=== PATIENT | female | born 1970 | race African-American/Black ===

== ENCOUNTER 2016-08-28 10:46 | Emergency (ER) | payer SELFPAY ==
[2016-08-28] MEDS ORDERED: Ketorolac Tromethamine 60 MG/2 ML VIAL ONE (11:25)
[2016-08-28] MEDS ORDERED: Cyclobenzaprine 10 MG TAB ONE (11:25)
--- NOTE | 2016-08-28 12:27 | RAD ---
FRONTAL VIEW CHEST THREE VIEW RIGHT RIB SERIES: CLINICAL HISTORY: Right chest and back pain intermittent for 4 months. FINDINGS: There is no consolidation, effusion, or pneumothorax. No free air beneath the hemidiaphragms. Card iac silhouette is within normal limits of size. No displaced right rib fracture is seen. Scattered degenerative change of the osseous structures is present. There is a left convexity curvature of t he mid to low thoracic spine. IMPRESSION: No acute abnormality visualized. POS: RODNEY
== END 2016-08-28 12:48 | disposition home or self-care (01) ==
LOC: NAV ERS 10:46
DX: S23.3XXA Sprain of ligaments of thoracic spine, initial encounter (principal); I10 Essential (primary) hypertension; F17.210 Nicotine dependence, cigarettes, uncomplicated; Z79.899 Other long term (current) drug therapy; Z79.82 Long term (current) use of aspirin; X58.XXXA Exposure to other specified factors, initial encounter
CPT/HCPCS: 96372; J1885

== ENCOUNTER 2017-07-03 07:58 | Emergency (ER) | payer SELFPAY ==
[2017-07-03] MEDS ORDERED: Ibuprofen 800 MG TAB ONE (08:17)
[2017-07-03] MEDS ORDERED: Bicillin LA 1.2 MILLION UNITS/2 ML SYRINGE ONE ×2 (08:43→08:47)
== END 2017-07-03 09:09 | disposition home or self-care (01) ==
LOC: NAV ERS 07:58
DX: J02.0 Streptococcal pharyngitis (principal); I10 Essential (primary) hypertension; F17.210 Nicotine dependence, cigarettes, uncomplicated; Z79.899 Other long term (current) drug therapy; Z79.82 Long term (current) use of aspirin
CPT/HCPCS: 87430; 96372; J0561

== ENCOUNTER 2017-07-04 17:42 | Emergency (ER) | payer SELFPAY ==
[2017-07-04] MEDS ORDERED: cloNIDine 0.1 MG TAB ONE (18:20)
[2017-07-04] MEDS ORDERED: methylPREDNISolone Sod Succ/PF 125 MG/2 ML VIAL ONE (18:29)
== END 2017-07-04 18:39 | disposition home or self-care (01) ==
LOC: NAV ERS 17:42
DX: J02.9 Acute pharyngitis, unspecified (principal); I10 Essential (primary) hypertension; Z87.891 Personal history of nicotine dependence; Z79.82 Long term (current) use of aspirin; Z79.899 Other long term (current) drug therapy
CPT/HCPCS: 96372; J2930

== ENCOUNTER 2018-03-04 23:44 | Emergency (ER) | payer SELFPAY ==
[2018-03-05] MEDS ORDERED: Ketorolac Tromethamine 30 MG/ML VIAL ONE (00:04)
--- NOTE | 2018-03-05 08:45 | RAD ---
RADIOGRAPH RIGHT KNEE FOUR VIEWS: History: 47-year-old female with nontraumatic right knee pain. FINDINGS: There is a suprapatellar joint effusion. No fracture or dislocation. No high grade DJD. No destructiv e osseous lesion. IMPRESSION: 1. Joint effusion. 2. No major osseous abnormality. POS: GONZALES
== END 2018-03-05 00:40 | disposition home or self-care (01) ==
LOC: NAV ERS 23:44
DX: M17.11 Unilateral primary osteoarthritis, right knee (principal); I10 Essential (primary) hypertension; Z87.891 Personal history of nicotine dependence; Z79.82 Long term (current) use of aspirin; Z79.899 Other long term (current) drug therapy
CPT/HCPCS: 96372; J1885

== ENCOUNTER 2018-05-10 01:06 | Emergency (ER) | payer SELFPAY ==
[2018-05-10] MEDS ORDERED: Ondansetron PF 4 MG/2 ML Vial ONE (01:30)
[2018-05-10 01:31] LABS: #Basophils 0.1 thou/uL (0.0-0.2); #Eosinphils 0.3 thou/uL (0.0-0.7); #Lymphocytes 2.6 thou/uL (1.20-3.40); #Monocytes 0.8 thou/uL (0.11-0.59); #Neutrophils 2.6 thou/uL (1.40-6.50); %Basophils 1.6 % (0.0-1.0); %Eosinophils 4.2 % (0.0-10.0); %Lymphocytes 40.7 % (21.0-51.0); %Monocytes 12.1 % (0.0-10.0); %Neutrophils 41.3 % (42.0-75.0); Hemoglobin 12.8 g/dL (12.0-16.0); Mean Corpuscular HGB CONC 31.1 g/dL (32.0-36.0); Mean Corpuscular Hemoglobin 26.9 pg (27.0-31.0); Mean Corpuscular Volume 86.6 fL (78.0-98.0); Mean Platelet Volume 8.9 fL (7.4-10.4); Platelet Count 273 thou/uL (130-400); RBC Distribution Width 12.7 % (11.5-14.5); Red Blood Cell (RBC) Count 4.76 mill/uL (4.20-5.40); White Blood Cell (WBC) Count 6.3 thou/uL (4.8-10.8)
[2018-05-10 01:52] LABS: ALT (SGPT) 13 U/L (8-55); AST (SGOT) 18 U/L (5-34); Acetaminophen Less than 6.0 mcg/mL (10.0-30.0); Albumin 4.7 g/dL (3.5-5.0); Alcohol 58 mg/dL (Less than 10); Alkaline Phosphatase 76 U/L (40-150); Anion Gap 17 mmol/L (10-20); BUN (Urea Nitrogen) 13 mg/dL (7.0-18.7); Bilirubin, Total 0.2 mg/dL (0.2-1.2); Calc. Creatinine Clearance 0 mL/min (70-130); Calcium 9.6 mg/dL (7.8-10.44); Chloride 101 mmol/L (98-107); Estimated GFR-MDRD 90; Globulin 3.9 g/dL (2.4-3.5); Glucose 121 mg/dL (70-105); Potassium 3.1 mmol/L (3.5-5.1); Protein, Total 8.6 g/dL (6.0-8.3); Salicylate Less than 8.0 mg/dL (15.0-30.0); Sodium 137 mmol/L (136-145)
[2018-05-10 02:02] LABS: Carbon Dioxide 22 mmol/L (22-29)
[2018-05-10 02:33] LABS: Bilirubin Negative (Negative); Blood, Urine Trace (Negative); Clarity Clear (Clear); Glucose, Urine (Dipstick) Negative (Negative); Leukocyte Negative (Negative); Nitrite Negative (Negative); Protein, Urine (Dipstick) Negative (Neg-Trace); Specific Gravity, Urine 1.015 (1.005-1.030); Urobilinogen 0.2 mg/dL (0.2-1.0); pH, Urine 5.5 (5.0-9.0)
[2018-05-10 02:42] LABS: Amphetamine Not Detected (NotDetected); Bacteria/HPF None Seen HPF (None Seen); Barbiturates Screen Not Detected (NotDetected); Benzodiazepine Screen Not Detected (NotDetected); Cocaine Metabolite Screen Not Detected (NotDetected); Medtox Control Line Valid? VALID (VALID); Methadone Not Detected (NotDetected); Methamphetamine Not Detected (NotDetected); Opiate Screen Not Detected (NotDetected); Oxycodone Screen Not Detected (NotDetected); Phencyclidine (PCP) Not Detected (NotDetected); Squamous Epithelial 0-3 HPF (0-3); THC/Cannabinoid Screen Not Detected (NotDetected); Tricyclic Screen Not Detected (NotDetected); WBC/HPF None Seen HPF (0-3)
[2018-05-10] MEDS ORDERED: Potassium Chloride 20 MEQ TAB ONE (02:52)
== END 2018-05-10 03:00 | disposition home or self-care (01) ==
LOC: NAV ERS 01:06
DX: F41.9 Anxiety disorder, unspecified (principal); F10.129 Alcohol abuse with intoxication, unspecified; E87.6 Hypokalemia; I10 Essential (primary) hypertension; F41.0 Panic disorder [episodic paroxysmal anxiety]; Z87.891 Personal history of nicotine dependence; Z79.899 Other long term (current) drug therapy; Z79.82 Long term (current) use of aspirin
CPT/HCPCS: 36415; 80053; 80306; 80307; 81003; 81015; 83690; 85025; 96361; 96374; J2405

== ENCOUNTER 2018-06-08 17:35 | Emergency (ER) | payer SELFPAY | END 2018-06-08 18:11 | disposition home or self-care (01) | LOC: NAV ERS 17:35 | DX: M25.561 Pain in right knee (principal); M25.562 Pain in left knee; I10 Essential (primary) hypertension; Z87.891 Personal history of nicotine dependence; F41.0 Panic disorder [episodic paroxysmal anxiety]; Z79.899 Other long term (current) drug therapy; Z79.82 Long term (current) use of aspirin | CPT/HCPCS: 99281 ==

== ENCOUNTER 2018-09-26 18:53 | Emergency (ER) | payer SELFPAY ==
[2018-09-26] MEDS ORDERED: Ketorolac Tromethamine 60 MG/2 ML VIAL ONE (20:00)
--- NOTE | 2018-09-26 20:09 | RAD ---
FEXAM: Chest PA and lateral: HISTORY: Trauma COMPARISON: none FINDINGS: Lung cerna are clear. Vascular markings are normal. Heart and mediastinum appear unremarkable. Vascularity is normal. Degenerative spine changes. No acute compression apparent. IMPRESSION: Unremarkable chest
[2018-09-26 20:18] LABS: #Basophils 0.1 thou/uL (0.0-0.2); #Eosinphils 0.2 thou/uL (0.0-0.7); #Lymphocytes 2.1 thou/uL (1.20-3.40); #Monocytes 0.7 thou/uL (0.11-0.59); #Neutrophils 4.1 thou/uL (1.40-6.50); %Basophils 1.6 % (0.0-1.0); %Eosinophils 3.1 % (0.0-10.0); %Lymphocytes 29.5 % (21.0-51.0); %Monocytes 9.5 % (0.0-10.0); %Neutrophils 56.2 % (42.0-75.0); Hemoglobin 11.5 g/dL (12.0-16.0); Mean Corpuscular HGB CONC 31.2 g/dL (32.0-36.0); Mean Corpuscular Hemoglobin 26.5 pg (27.0-31.0); Mean Platelet Volume 8.4 fL (7.4-10.4); Platelet Count 291 thou/uL (130-400); RBC Distribution Width 13.1 % (11.5-14.5); Red Blood Cell (RBC) Count 4.35 mill/uL (4.20-5.40); White Blood Cell (WBC) Count 7.3 thou/uL (4.8-10.8)
[2018-09-26 20:26] LABS: ALT (SGPT) 12 U/L (8-55); AST (SGOT) 17 U/L (5-34); Albumin 4.4 g/dL (3.5-5.0); Alkaline Phosphatase 80 U/L (40-150); Anion Gap 17 mmol/L (10-20); BUN (Urea Nitrogen) 13 mg/dL (7.0-18.7); Bilirubin, Total 0.2 mg/dL (0.2-1.2); Calc. Creatinine Clearance 0 mL/min (70-130); Calcium 9.9 mg/dL (7.8-10.44); Carbon Dioxide 24 mmol/L (22-29); Chloride 100 mmol/L (98-107); Estimated GFR-MDRD 88; Globulin 3.8 g/dL (2.4-3.5); Glucose 114 mg/dL (70-105); Potassium 3.3 mmol/L (3.5-5.1); Protein, Total 8.2 g/dL (6.0-8.3); Sodium 138 mmol/L (136-145)
[2018-09-26] MEDS ORDERED: Potassium Chloride 20 MEQ TAB ONE (20:53)
== END 2018-09-26 20:58 | disposition home or self-care (01) ==
LOC: NAV ERS 18:53
DX: S39.012A Strain of muscle, fascia and tendon of lower back, initial encounter (principal); S16.1XXA Strain of muscle, fascia and tendon at neck level, initial encounter; F41.0 Panic disorder [episodic paroxysmal anxiety]; I10 Essential (primary) hypertension; Z79.82 Long term (current) use of aspirin; Z87.891 Personal history of nicotine dependence; Z79.899 Other long term (current) drug therapy; V53.5XXA Driver of pick-up truck or van injured in collision with car, pick-up truck or van in traffic accident, initial encounter
CPT/HCPCS: 71046; 80053; 84484; 85025; 93005; 96372; J1885

== ENCOUNTER 2018-12-30 23:35 | Emergency (ER) | payer SELFPAY ==
[2018-12-31 00:10] LABS: #Basophils 0.2 thou/uL (0.0-0.2); #Eosinphils 0.4 thou/uL (0.0-0.7); #Lymphocytes 2.4 thou/uL (1.20-3.40); #Neutrophils 4.9 thou/uL (1.40-6.50); %Basophils 1.9 % (0.0-1.0); %Eosinophils 4.6 % (0.0-10.0); %Lymphocytes 27.2 % (21.0-51.0); %Monocytes 11.7 % (0.0-10.0); %Neutrophils 54.6 % (42.0-75.0); Hemoglobin 10.9 g/dL (12.0-16.0); Mean Corpuscular HGB CONC 31.7 g/dL (32.0-36.0); Mean Corpuscular Hemoglobin 26.4 pg (27.0-31.0); Mean Corpuscular Volume 83.5 fL (78.0-98.0); Mean Platelet Volume 8.5 fL (7.4-10.4); Platelet Count 243 thou/uL (130-400); RBC Distribution Width 13.3 % (11.5-14.5); Red Blood Cell (RBC) Count 4.14 mill/uL (4.20-5.40); White Blood Cell (WBC) Count 8.9 thou/uL (4.8-10.8)
[2018-12-31] MEDS ORDERED: Nitroglycerin 0.4 MG TAB (25 Tab Bottle) ONE (00:12)
[2018-12-31 00:24] LABS: ALT (SGPT) 10 U/L (8-55); AST (SGOT) 21 U/L (5-34); Albumin 4.2 g/dL (3.5-5.0); Alkaline Phosphatase 78 U/L (40-150); Anion Gap 15 mmol/L (10-20); BUN (Urea Nitrogen) 10 mg/dL (7.0-18.7); Bilirubin, Total 0.1 mg/dL (0.2-1.2); Calc. Creatinine Clearance 0 mL/min (70-130); Carbon Dioxide 22 mmol/L (22-29); Chloride 105 mmol/L (98-107); Estimated GFR-MDRD Greater than 90; Globulin 3.7 g/dL (2.4-3.5); Glucose 108 mg/dL (70-105); Lipase 20 U/L (8-78); Potassium 3.7 mmol/L (3.5-5.1); Protein, Total 7.9 g/dL (6.0-8.3); Sodium 138 mmol/L (136-145)
[2018-12-31] MEDS ORDERED: cloNIDine 0.1 MG TAB ONE (00:30)
[2018-12-31] MEDS ORDERED: Mag-Al Plus 1200 MG/1200 MG/120 MG/30 ML UDCUP ONE (00:31)
[2018-12-31] MEDS ORDERED: cloNIDine 0.2 MG TAB ONE (02:10)
[2018-12-31 02:22] LABS: Troponin I Less than 0.010 ng/mL (< 0.028)
--- NOTE | 2018-12-31 07:38 | RAD ---
XR Chest Pa Lat STANDARD History: Chest pain Comparison: Radiograph September 26, 2018 Findings: Lungs are clear. No pneumothorax. No effusion. No acute osseous abnormality. Impression: No acute intrathoracic abnormality.
== END 2018-12-31 03:14 | disposition home or self-care (01) ==
LOC: NAV ERS 23:35
DX: I10 Essential (primary) hypertension (principal); K29.70 Gastritis, unspecified, without bleeding; E78.5 Hyperlipidemia, unspecified; F17.210 Nicotine dependence, cigarettes, uncomplicated; Z79.82 Long term (current) use of aspirin; Z79.899 Other long term (current) drug therapy
CPT/HCPCS: 71046; 80053; 83690; 84484; 85025; 93005

== ENCOUNTER 2021-02-23 00:57 | Emergency (ER) | payer BC, OTHER, SELFPAY | END 2021-02-23 01:53 | disposition home or self-care (01) | LOC: NAV ERS 00:57 | DX: I10 Essential (primary) hypertension (principal); E05.90 Thyrotoxicosis, unspecified without thyrotoxic crisis or storm; E78.5 Hyperlipidemia, unspecified; Z87.891 Personal history of nicotine dependence; Z79.899 Other long term (current) drug therapy | CPT/HCPCS: 99283 ==

== ENCOUNTER 2021-06-05 08:43 | Emergency (ER) | payer OTHER, SELFPAY | END 2021-06-05 09:31 | disposition home or self-care (01) | LOC: NAV ERS 08:43 | DX: H01.004 Unspecified blepharitis left upper eyelid (principal); H01.001 Unspecified blepharitis right upper eyelid; E05.90 Thyrotoxicosis, unspecified without thyrotoxic crisis or storm; E78.5 Hyperlipidemia, unspecified; I10 Essential (primary) hypertension; Z87.891 Personal history of nicotine dependence; Z79.899 Other long term (current) drug therapy | CPT/HCPCS: 99283 ==

== ENCOUNTER 2021-09-23 19:53 | Emergency (ER) | payer OTHER ==
[~2021-09-23 19:53] MED LIST: Iopamidol 370 76% 100 ML VIAL ONE
[2021-09-23 20:59] LABS: #Basophils 0.2 thou/uL (0.0-0.2); #Eosinphils 0.2 thou/uL (0.0-0.7); #Neutrophils 4.2 thou/uL (1.40-6.50); %Basophils 2.1 % (0.0-1.0); %Eosinophils 2.6 % (0.0-10.0); %Monocytes 13.1 % (0.0-10.0); %Neutrophils 56.2 % (42.0-75.0); Hemoglobin 10.8 g/dL (12.0-16.0); Mean Corpuscular HGB CONC 31.6 g/dL (32.0-36.0); Mean Corpuscular Hemoglobin 27.9 pg (27.0-31.0); Mean Corpuscular Volume 88.4 fL (78.0-98.0); Mean Platelet Volume 7.9 fL (7.4-10.4); Platelet Count 257 thou/uL (130-400); RBC Distribution Width 12.1 % (11.5-14.5); Red Blood Cell (RBC) Count 3.88 mill/uL (4.20-5.40); White Blood Cell (WBC) Count 7.5 thou/uL (4.8-10.8)
[2021-09-23 21:10] LABS: ALT (SGPT) 7 U/L (8-55); AST (SGOT) 10 U/L (5-34); Albumin 4.3 g/dL (3.5-5.0); Alkaline Phosphatase 80 U/L (40-110); Anion Gap 15 mmol/L (10-20); BUN (Urea Nitrogen) 11 mg/dL (7.0-18.7); Bilirubin, Total 0.2 mg/dL (0.2-1.2); Calc. Creatinine Clearance 0 mL/min (70-130); Calcium 9.4 mg/dL (7.8-10.44); Carbon Dioxide 25 mmol/L (22-29); Chloride 103 mmol/L (98-107); Globulin 4.1 g/dL (2.4-3.5); Glucose 95 mg/dL (70-105); Potassium 3.5 mmol/L (3.5-5.1); Protein, Total 8.4 g/dL (6.0-8.3); Sodium 139 mmol/L (136-145)
[2021-09-23] MEDS ORDERED: hydrALAZINE 10 MG TAB ONE (21:32)
[2021-09-23 21:33] LABS: SARS-CoV-2 NAA Rapid Test Not Detected (NotDetected)
[2021-09-23] MEDS ORDERED: Sodium Chloride 0.9% 100 ML ONE (22:49)
[2021-09-23] MEDS ORDERED: Piperacillin/Tazobactam 3.375 GM VIAL ONE (22:49)
[2021-09-23] MEDS ORDERED: hydrALAZINE 20 MG/ML VIAL ONE (22:49)
[2021-09-23] MEDS ORDERED: Dexamethasone 4 mg/ml Vial ONE (22:49)
[2021-09-24 00:01] LABS: Troponin I Less than 0.010 ng/mL (< 0.028)
== END 2021-09-24 01:03 | disposition short-term general hospital (02) ==
LOC: NAV ERS 19:53
DX: J36 Peritonsillar abscess (principal); I16.0 Hypertensive urgency; R94.31 Abnormal electrocardiogram [ECG] [EKG]; I45.89 Other specified conduction disorders; E03.9 Hypothyroidism, unspecified; E78.5 Hyperlipidemia, unspecified; I10 Essential (primary) hypertension; N83.209 Unspecified ovarian cyst, unspecified side; Z20.822 Contact with and (suspected) exposure to COVID-19; Z87.891 Personal history of nicotine dependence; Z79.899 Other long term (current) drug therapy
CPT/HCPCS: 70491; 71045; 80053; 84443; 84484; 85025; 87081; 87430; 93005; 96365; 96375; 96376; J0360; J1100; J2543; J3490; Q9967; U0002

== ENCOUNTER 2021-11-30 05:56 | Emergency (ER) | payer OTHER, SELFPAY ==
[2021-11-30] MEDS ORDERED: Morphine 4 MG/ML VIAL ONE (06:10)
[2021-11-30] MEDS ORDERED: Ketorolac Tromethamine 30 MG/ML VIAL ONE (06:11)
== END 2021-11-30 06:46 | disposition home or self-care (01) ==
LOC: NAV ERS 05:56
DX: M25.511 Pain in right shoulder (principal); I10 Essential (primary) hypertension; E78.5 Hyperlipidemia, unspecified; E05.90 Thyrotoxicosis, unspecified without thyrotoxic crisis or storm; Z87.891 Personal history of nicotine dependence; Z79.899 Other long term (current) drug therapy; Z79.82 Long term (current) use of aspirin; X58.XXXA Exposure to other specified factors, initial encounter
CPT/HCPCS: 96372; 99283; J1885; J2270

== ENCOUNTER 2022-02-14 15:37 | Emergency (ER) | payer SELFPAY ==
[2022-02-14 16:57] LABS: #Basophils 0.1 thou/uL (0.0-0.2); #Eosinphils 0.1 thou/uL (0.0-0.7); #Lymphocytes 1.2 thou/uL (1.20-3.40); #Monocytes 0.8 thou/uL (0.11-0.59); #Neutrophils 4.3 thou/uL (1.40-6.50); %Basophils 1.3 % (0.0-1.0); %Eosinophils 2.3 % (0.0-10.0); %Lymphocytes 18.6 % (21.0-51.0); %Monocytes 11.8 % (0.0-10.0); %Neutrophils 65.9 % (42.0-75.0); Hemoglobin 10.5 g/dL (12.0-16.0); Mean Corpuscular HGB CONC 30.1 g/dL (32.0-36.0); Mean Corpuscular Hemoglobin 26.7 pg (27.0-31.0); Mean Corpuscular Volume 88.6 fL (78.0-98.0); Mean Platelet Volume 9.4 fL (7.4-10.4); Platelet Count 222 thou/uL (130-400); RBC Distribution Width 13.9 % (11.5-14.5); Red Blood Cell (RBC) Count 3.93 mill/uL (4.20-5.40); White Blood Cell (WBC) Count 6.5 thou/uL (4.8-10.8)
[2022-02-14 17:11] LABS: ALT (SGPT) 9 U/L (8-55); AST (SGOT) 11 U/L (5-34); Albumin 3.9 g/dL (3.5-5.0); Alkaline Phosphatase 62 U/L (40-110); Anion Gap 15 mmol/L (10-20); BUN (Urea Nitrogen) 12 mg/dL (7.0-18.7); Bilirubin, Total 0.5 mg/dL (0.2-1.2); CRP (Inflammatory) Less than 0.50 mg/dL (= or < 0.5); Calc. Creatinine Clearance 0 mL/min (70-130); Carbon Dioxide 25 mmol/L (22-29); Chloride 102 mmol/L (98-107); Estimated GFR 86; Globulin 3.5 g/dL (2.4-3.5); Glucose 94 mg/dL (70-105); Potassium 3.7 mmol/L (3.5-5.1); Protein, Total 7.4 g/dL (6.0-8.3); Sodium 138 mmol/L (136-145)
== END 2022-02-14 17:30 | disposition home or self-care (01) ==
LOC: NAV ERS 15:37
DX: M25.571 Pain in right ankle and joints of right foot (principal); E78.5 Hyperlipidemia, unspecified; I10 Essential (primary) hypertension; Z79.899 Other long term (current) drug therapy
CPT/HCPCS: 80053; 85025; 85379; 86140

== ENCOUNTER 2022-05-04 14:10 | Emergency (ER) | payer OTHER, SELFPAY ==
[2022-05-04] MEDS ORDERED: Ibuprofen 800 MG TAB ONE (15:06)
== END 2022-05-04 15:35 | disposition home or self-care (01) ==
LOC: NAV ERS 14:10
DX: S83.92XA Sprain of unspecified site of left knee, initial encounter (principal); E05.90 Thyrotoxicosis, unspecified without thyrotoxic crisis or storm; I10 Essential (primary) hypertension; Z79.899 Other long term (current) drug therapy; Z79.82 Long term (current) use of aspirin; Z87.891 Personal history of nicotine dependence; W18.39XA Other fall on same level, initial encounter

== ENCOUNTER 2022-08-16 15:17 | Emergency (ER) | payer BC, MEDICARE ==
[2022-08-16] MEDS ORDERED: Acetaminophen 500 MG TAB ONE (16:15)
== END 2022-08-16 17:20 | disposition home or self-care (01) ==
LOC: NAV ERS 15:17
DX: J06.9 Acute upper respiratory infection, unspecified (principal); M79.10 Myalgia, unspecified site; E05.90 Thyrotoxicosis, unspecified without thyrotoxic crisis or storm; I10 Essential (primary) hypertension; Z20.822 Contact with and (suspected) exposure to COVID-19; Z87.891 Personal history of nicotine dependence; Z79.82 Long term (current) use of aspirin; Z79.899 Other long term (current) drug therapy
CPT/HCPCS: 87081; 87430; 87804; 87807; 99283; U0003; U0005

== ENCOUNTER 2023-12-24 20:11 | Emergency (ER) | payer OTHER ==
[2023-12-24 20:36] LABS: Bilirubin Negative (Negative); Blood, Urine Negative (Negative); Clarity Clear (Clear); Glucose, Urine (Dipstick) Negative (Negative); Ketone, Urine Negative (Negative); Leukocyte Negative (Negative); Nitrite Negative (Negative); Protein, Urine (Dipstick) Negative (Neg-Trace); Specific Gravity, Urine 1.025 (1.005-1.030); pH, Urine 6.5 (5.0-9.0)
[2023-12-24 20:42] LABS: Bacteria/HPF Rare-Few HPF (None Seen); CAUTI Indications for Culture Pelvic or flank pain; Mucous/LPF 1+ LPF (<2+); RBC/HPF 0-3 HPF (0-3); Squamous Epithelial 0-3 HPF (0-3); Urine Culture Reflex No No; WBC/HPF 0-3 HPF (0-3)
[2023-12-24] MEDS ORDERED: Morphine 4 MG/ML VIAL ONE (20:43)
[2023-12-24] MEDS ORDERED: Ondansetron PF 4 MG/2 ML Vial ONE (20:44)
[2023-12-24 20:58] LABS: #Basophils 0.1 thou/uL (0.0-0.2); #Eosinphils 0.1 thou/uL (0.0-0.7); #Lymphocytes 1.3 thou/uL (1.20-3.40); #Monocytes 0.7 thou/uL (0.11-0.59); #Neutrophils 2.7 thou/uL (1.40-6.50); %Basophils 1.3 % (0.0-1.0); %Eosinophils 2.5 % (0.0-10.0); %Lymphocytes 26.6 % (21.0-51.0); %Monocytes 13.9 % (0.0-10.0); %Neutrophils 55.8 % (42.0-75.0); Hematocrit 35.1 % (36.0-47.0); Hemoglobin 10.6 g/dL (12.0-16.0); Mean Corpuscular HGB CONC 30.2 g/dL (32.0-36.0); Mean Corpuscular Hemoglobin 25.5 pg (27.0-31.0); Mean Corpuscular Volume 84.6 fl (78.0-98.0); Mean Platelet Volume 8.3 fL (7.4-10.4); Platelet Count 236 10x3/uL (130-400); RBC Distribution Width 14.7 % (11.5-14.5); Red Blood Cell (RBC) Count 4.15 mill/uL (4.20-5.40); White Blood Cell (WBC) Count 4.9 10x3/uL (4.8-10.8)
[2023-12-24 21:08] LABS: ALT (SGPT) 8 U/L (8-55); AST (SGOT) 13 U/L (5-34); Albumin 4.3 g/dL (3.5-5.0); Alkaline Phosphatase 65 U/L (40-110); Anion Gap 16 mmol/L (10-20); BUN (Urea Nitrogen) 10 mg/dL (9.8-20.1); Bilirubin, Total 0.3 mg/dL (0.2-1.2); Calc. Creatinine Clearance 0 mL/min (70-130); Calcium 9.8 mg/dL (7.8-10.44); Carbon Dioxide 24 mmol/L (22-29); Chloride 104 mmol/L (98-107); Estimated GFR 83; Globulin 4.6 g/dL (2.4-3.5); Glucose 81 mg/dL (70-105); Potassium 3.7 mmol/L (3.5-5.1); Protein, Total 8.9 g/dL (6.0-8.3); Sodium 140 mmol/L (136-145)
[2023-12-24] MEDS ORDERED: Ketorolac Tromethamine 30 MG (1 mL) VIAL ONE (22:44)
[2023-12-24] MEDS ORDERED: HYDROcodone/Acetaminophen 10/325 mg Tablet ONE (22:45)
== END 2023-12-24 23:01 | disposition home or self-care (01) ==
LOC: NAV ERS 20:11
DX: S39.012A Strain of muscle, fascia and tendon of lower back, initial encounter (principal); I10 Essential (primary) hypertension; Z87.891 Personal history of nicotine dependence; Z79.899 Other long term (current) drug therapy; X58.XXXA Exposure to other specified factors, initial encounter
CPT/HCPCS: 74177; 80053; 81001; 85025; 96374; 96375; J1885; J2270; J2405; Q9967